=== PATIENT | male | born 1955 | race Caucasian/White ===

== ENCOUNTER 2023-11-23 12:39 | Emergency (ER) | payer SELFPAY ==
[2023-11-23] MEDS ORDERED: Ondansetron PF 4 MG/2 ML Vial ONE (12:50)
[2023-11-23] MEDS ORDERED: Sodium Chloride 0.9% 1,000 ML ONE (12:50)
[2023-11-23] MEDS ORDERED: Ketorolac Tromethamine 30 MG (1 mL) VIAL ONE (12:50)
[2023-11-23] MEDS ORDERED: Morphine 4 MG/ML VIAL ONE (13:16)
[2023-11-23 13:53] LABS: Bilirubin Negative (Negative); Blood, Urine Large (Negative); Glucose, Urine (Dipstick) Negative (Negative); Ketone, Urine 15 mg/dL (Negative); Leukocyte Negative (Negative); Nitrite Negative (Negative); Protein, Urine (Dipstick) 100 mg/dL (Neg-Trace); Specific Gravity, Urine 1.025 (1.005-1.030); Urobilinogen 0.2 mg/dL (Less than 2); pH, Urine 7.5 (5.0-9.0)
[2023-11-23 13:55] LABS: Clarity Cloudy (Clear)
[2023-11-23 13:56] LABS: CAUTI Indications for Culture Pelvic or flank pain; RBC/HPF Greater than 50 HPF (0-3); Squamous Epithelial 0-3 HPF (0-3); WBC/HPF 0-3 HPF (0-3)
[2023-11-23 13:57] LABS: Urine Culture Reflex No No
[2023-11-23] MEDS ORDERED: Tamsulosin HCl 0.4 MG CAP ONE (14:00)
== END 2023-11-23 14:16 | disposition home or self-care (01) ==
LOC: NAV ERS 12:39
DX: N20.1 Calculus of ureter (principal); R03.0 Elevated blood-pressure reading, without diagnosis of hypertension
CPT/HCPCS: 74176; 81001; 96361; 96374; 96375; J1885; J2270; J2405; J7050